=== PATIENT | male | born 1990 | race Hispanic/Latino ===

== ENCOUNTER 2017-04-18 19:45 | Emergency (ER) | payer SELFPAY ==
[~2017-04-18] VITALS: Ht 167.6 cm; Wt 91.0 kg
[~2017-04-18 19:45] MED LIST: ADVIL200 MG PO; AMOXICILLIN500 MG PO; ANTIBIOT EAR11 OT; ANTIVERT OR; CEPHALEXIN500 MG PO; DENIES CURRENT MEDS; FLEXERIL PO; HYDROCORTISONE1 % EX; KEFLEX500 M1 PO; NAPROSYN500 MG PO; NO; NO HOME MEDS; PRILOSEC OTC20 MG OR; ROBITUSSIN AC10 ML PO; ULTRAM50 M1 PO; ULTRAM50 MG OR
[2017-04-18] MEDS ORDERED: AMOXICILLIN875 MG PO (20:03)
[2017-04-18] MEDS ORDERED: LORTAB 10-325 M1 TAB PO (20:03)
[2017-04-18] MEDS ORDERED: FLOXIN OTIC0.3 % AD (20:03)
[2017-04-18 21:00] VITALS: BP 144/74
== END 2017-04-18 21:00 | disposition home or self-care (01) | DRG 153 ==
LOC: ED 19:45
DX: H66.91 Otitis media, unspecified, right ear (principal); H92.01 Otalgia, right ear; R50.9 Fever, unspecified

== ENCOUNTER 2017-08-19 11:13 | Emergency (ER) | payer MEDICAID ==
[~2017-08-19] VITALS: Ht 167.6 cm; Wt 100.0 kg
[~2017-08-19 11:13] MED LIST changes: +AMOXICILLIN875 MG PO; +FLOXIN OTIC0.3 % AD; +LORTAB 10-325 M1 TAB PO
[2017-08-19] MEDS ORDERED: MOTRIN400 MG PO (13:06)
[2017-08-19] MEDS ORDERED: CYCLOBENZAPR5 MG PO (13:06)
[2017-08-19 13:17] VITALS: BP 130/80
== END 2017-08-19 13:15 | disposition home or self-care (01) | DRG 552 ==
LOC: ED 11:13
DX: M54.5 Low back pain (principal); X50.0XXA Overexertion from strenuous movement or load, initial encounter; X50.3XXA Overexertion from repetitive movements, initial encounter; Y93.H2 Activity, gardening and landscaping; Y92.89 Other specified places as the place of occurrence of the external cause

== ENCOUNTER 2017-08-26 18:51 | Emergency (ER) | payer MEDICAID ==
[~2017-08-26] VITALS: Ht 167.6 cm; Wt 100.0 kg
[~2017-08-26 18:51] MED LIST changes: +CYCLOBENZAPR5 MG PO; +MOTRIN400 MG PO
[2017-08-26 19:53] LABS: HEMATOCRIT 46.1 % (39.0-50.0); HEMOGLOBIN 16.2 g/dl (14.0-18.0); IMMATURE GRANULOCYTES 0.7 % (0.0-1.0); MEAN CELL VOLUME 83.7 fL CALC (80.0-100.0); MEAN CORPUSCULAR HGB 29.4 pG CALC (26.0-32.0); MEAN CORPUSCULAR HGB CONC 35.1 g/L CALC (32.0-36.0); NEUT# 11.77 thou/uL (1.82-7.42); RED BLOOD COUNT 5.51 mill/uL (4.70-6.10); RED CELL DISTRI WIDTH 11.9 % (11.5-15.5)
[2017-08-26 20:06] LABS: INFLUENZA A NONE DETECTED (NONE DETECT); INFLUENZA B NONE DETECTED (NONE DETECT)
[2017-08-26 20:09] LABS: ALBUMIN 5.3 g/dL (3.2-5.0); ALKALINE PHOSPHATASE 112 u/l (38-126); ANION GAP 21 (6-22 (CALC)); BILIRUBIN, TOTAL 0.7 mg/dL (0.0-1.4); BUN 14 mg/dL (9-20); BUN/CREATININE RATIO 15 (12-20 (CALC)); CARBON DIOXIDE 23 mmol/l (22-30); CHLORIDE 101 mmol/l (95-108); CREATININE 0.9 mg/dL (0.7-1.3); GFR > 60 ML/MIN (>=60 (CALC)); GFR FOR AFR.AMER. > 60 ML/MIN (>=60 (CALC)); SGOT/AST 52 u/l (17-59); SGPT/ALT 90 u/l (21-72); SODIUM 141 mmol/l (137-146); TOTAL PROTEIN 8.7 g/dL (6.3-8.2)
[2017-08-26 20:38] LABS: URINE BILIRUBIN - DIPSTICK NEGATIVE (NEGATIVE); URINE BLOOD DIPSTICK TRACE-INTACT (NEGATIVE); URINE COLOR YELLOW; URINE GLUCOSE - DIPSTICK NEGATIVE (NEGATIVE); URINE KETONE NEGATIVE (NEGATIVE); URINE LEUK ESTERASE NEGATIVE (NEGATIVE); URINE NITRITE - DIPSTICK NEGATIVE (Negative); URINE PROTEIN - DIPSTICK NEGATIVE (NEG-TRACE); URINE SPECIFIC GRAVITY 1.025; URINE UROBILINOGEN - DIPSTICK 0.2 E.U./dL (0.2)
[2017-08-26 20:42] LABS: URINE CLARITY CLEAR
[2017-08-26] MEDS ORDERED: AMOXICILLIN500 MG PO (22:23)
[2017-08-26 22:40] VITALS: BP 140/71
== END 2017-08-26 22:33 | disposition home or self-care (01) | DRG 203 ==
LOC: ED 18:51
PROVIDERS: Emergency Medicine
DX: J40 Bronchitis, not specified as acute or chronic (principal); F17.210 Nicotine dependence, cigarettes, uncomplicated; R06.02 Shortness of breath; R50.9 Fever, unspecified

== ENCOUNTER 2017-11-10 10:03 | Emergency (ER) | payer SELFPAY ==
[~2017-11-10] VITALS: Ht 167.6 cm; Wt 100.0 kg
[2017-11-10 10:44] LABS: HEMATOCRIT 46.6 % (39.0-50.0); HEMOGLOBIN 16.4 g/dl (14.0-18.0); IMMATURE GRANULOCYTES 0.8 % (0.0-1.0); MEAN CELL VOLUME 83.8 fL CALC (80.0-100.0); MEAN CORPUSCULAR HGB 29.5 pG CALC (26.0-32.0); MEAN CORPUSCULAR HGB CONC 35.2 g/L CALC (32.0-36.0); NEUT# 3.22 thou/uL (1.82-7.42); RED BLOOD COUNT 5.56 mill/uL (4.70-6.10); RED CELL DISTRI WIDTH 12.3 % (11.5-15.5)
[2017-11-10 10:53] LABS: ALBUMIN 4.6 g/dL (3.2-5.0); ALKALINE PHOSPHATASE 99 u/l (38-126); AMYLASE 57 u/l (30-110); ANION GAP 18 (6-22 (CALC)); BILIRUBIN, TOTAL 0.8 mg/dL (0.0-1.4); BUN 10 mg/dL (9-20); BUN/CREATININE RATIO 13 (12-20 (CALC)); CARBON DIOXIDE 25 mmol/l (22-30); CHLORIDE 102 mmol/l (95-108); CREATININE 0.8 mg/dL (0.7-1.3); GFR > 60 ML/MIN (>=60 (CALC)); GFR FOR AFR.AMER. > 60 ML/MIN (>=60 (CALC)); LIPASE 117 u/l (23-300); POTASSIUM 4.4 mmol/l (3.5-5.1); SGOT/AST 68 u/l (17-59); SGPT/ALT 114 u/l (21-72); SODIUM 141 mmol/l (137-146); TOTAL PROTEIN 8.1 g/dL (6.3-8.2)
[2017-11-10] MEDS ORDERED: TORADOL PO (11:44)
[2017-11-10 11:59] VITALS: BP 143/70
== END 2017-11-10 12:08 | disposition home or self-care (01) | DRG 313 ==
LOC: ED 10:03
PROVIDERS: Family Medicine
DX: R07.89 Other chest pain (principal); G89.29 Other chronic pain; M54.9 Dorsalgia, unspecified

== ENCOUNTER 2017-12-17 09:43 | Emergency (ER) | payer OTHER ==
[~2017-12-17] VITALS: Ht 167.6 cm; Wt 104.0 kg
[~2017-12-17 09:43] MED LIST changes: +TORADOL PO
[2017-12-17] MEDS ORDERED: AFRIN 12 HOUR0.05 % (09:59)
[2017-12-17] MEDS ORDERED: PENICILLN VK500 MG PO (09:59)
[2017-12-17 10:10] VITALS: BP 153/89
== END 2017-12-17 10:10 | disposition home or self-care (01) | DRG 153 ==
LOC: ED 09:43
DX: J02.9 Acute pharyngitis, unspecified (principal); G89.29 Other chronic pain; M54.9 Dorsalgia, unspecified; R09.81 Nasal congestion; R05 Cough; R50.9 Fever, unspecified

== ENCOUNTER 2018-03-07 18:46 | Emergency (ER) | payer SELFPAY ==
[~2018-03-07] VITALS: Ht 152.4 cm; Wt 102.3 kg
[~2018-03-07 18:46] MED LIST changes: +AFRIN 12 HOUR0.05 %; +PENICILLN VK500 MG PO
[2018-03-07 19:56] VITALS: BP 135/88
== END 2018-03-07 20:05 | disposition home or self-care (01) | DRG 563 ==
LOC: ED 18:46
DX: S86.912A Strain of unspecified muscle(s) and tendon(s) at lower leg level, left leg, initial encounter (principal); G89.29 Other chronic pain; M54.9 Dorsalgia, unspecified; W18.39XA Other fall on same level, initial encounter; Y93.89 Activity, other specified; Y92.89 Other specified places as the place of occurrence of the external cause; Y99.0 Civilian activity done for income or pay

== ENCOUNTER 2018-06-03 09:17 | Emergency (ER) | payer SELFPAY ==
[~2018-06-03] VITALS: Ht 167.6 cm; Wt 104.5 kg
[2018-06-03] MEDS ORDERED: IBU-DROPS50 MG/1.25 (09:34)
[2018-06-03] MEDS ORDERED: TORADOL PO (10:32)
[2018-06-03] MEDS ORDERED: FLEXERIL PO (10:32)
[2018-06-03] MEDS ORDERED: MEDDOSEPAK PO (10:32)
[2018-06-03 10:55] VITALS: BP 148/84
== END 2018-06-03 10:55 | disposition home or self-care (01) | DRG 563 ==
LOC: ED 09:17
DX: S46.911A Strain of unspecified muscle, fascia and tendon at shoulder and upper arm level, right arm, initial encounter (principal); X50.1XXA Overexertion from prolonged static or awkward postures, initial encounter; Y93.H2 Activity, gardening and landscaping; Y92.89 Other specified places as the place of occurrence of the external cause; Y99.0 Civilian activity done for income or pay

== ENCOUNTER 2018-10-05 10:00 | Outpatient (RCR) | payer OTHER ==
[~2018-10-05 10:00] MED LIST changes: +IBU-DROPS50 MG/1.25; +MEDDOSEPAK PO
== END 2018-10-05 11:00 | disposition home or self-care (01) | DRG 556 ==
LOC: PT 10:00
PROVIDERS: ATTEND Orthopaedic Surgery
DX: M25.811 Other specified joint disorders, right shoulder (principal)

== ENCOUNTER 2018-12-14 11:32 | Emergency (ER) | payer SELFPAY ==
[~2018-12-14] VITALS: Ht 167.6 cm; Wt 100.0 kg
[2018-12-14 12:14] LABS: HEMATOCRIT 47.5 % (39.0-50.0); HEMOGLOBIN 16.3 g/dl (14.0-18.0); IMMATURE GRANULOCYTES 0.4 % (0.0-5.0); MEAN CELL VOLUME 84.5 fL CALC (80.0-100.0); MEAN CORPUSCULAR HGB CONC 34.3 g/L CALC (32.0-36.0); NEUT# 3.43 thou/uL (1.82-7.42); RED BLOOD COUNT 5.62 mill/uL (4.70-6.10); RED CELL DISTRI WIDTH 12.1 % (11.5-15.5)
[2018-12-14 12:26] LABS: ALBUMIN 4.8 g/dL (3.2-5.0); ALKALINE PHOSPHATASE 104 u/l (38-126); ANION GAP 15 (6-22 (CALC)); BILIRUBIN, TOTAL 0.8 mg/dL (0.0-1.4); BUN 10 mg/dL (9-20); BUN/CREATININE RATIO 13 (12-20 (CALC)); CARBON DIOXIDE 26 mmol/l (22-30); CHLORIDE 103 mmol/l (95-108); CREATININE 0.8 mg/dL (0.7-1.3); GFR > 60 ML/MIN (>=60 (CALC)); GFR FOR AFR.AMER. > 60 ML/MIN (>=60 (CALC)); SGOT/AST 96 u/l (17-59); SODIUM 140 mmol/l (137-146); TOTAL PROTEIN 7.9 g/dL (6.3-8.2)
[2018-12-14 12:38] LABS: MYOGLOBIN 61 ng/mL (0 - 121)
[2018-12-14] MEDS ORDERED: TORADOL PO (13:06)
[2018-12-14] MEDS ORDERED: TUSSIONEX1 ML PO (13:06)
[2018-12-14 13:25] VITALS: BP 140/70
== END 2018-12-14 13:25 | disposition home or self-care (01) | DRG 203 ==
LOC: ED 11:32
PROVIDERS: Family Medicine
DX: J20.8 Acute bronchitis due to other specified organisms (principal); F17.210 Nicotine dependence, cigarettes, uncomplicated; R07.89 Other chest pain; R06.02 Shortness of breath; R05 Cough

== ENCOUNTER 2019-06-28 17:48 | Emergency (ER) | payer OTHER ==
[~2019-06-28] VITALS: Ht 167.6 cm; Wt 109.0 kg
[~2019-06-28 17:48] MED LIST changes: +TUSSIONEX1 ML PO
[2019-06-28] MEDS ORDERED: ROBITUSSIN AC10 ML PO (19:59)
[2019-06-28] MEDS ORDERED: CEPHALEXIN500 MG PO (19:59)
[2019-06-28 20:08] VITALS: BP 122/70
== END 2019-06-28 20:10 | disposition home or self-care (01) ==
LOC: ED 17:48
DX: J06.9 Acute upper respiratory infection, unspecified (principal)

== ENCOUNTER 2021-07-11 08:02 | Emergency (ER) | payer OTHER ==
[~2021-07-11] VITALS: Ht 167.6 cm; Wt 136.0 kg
[2021-07-11 08:58] LABS: HEMATOCRIT 47.9 % (39.0-50.0); HEMOGLOBIN 16.6 g/dl (14.0-18.0); IMMATURE GRANULOCYTES 0.5 % (0.0-5.0); MEAN CELL VOLUME 84.3 fL CALC (80.0-100.0); MEAN CORPUSCULAR HGB 29.2 pG CALC (26.0-32.0); MEAN CORPUSCULAR HGB CONC 34.7 g/dL CAL (32.0-36.0); NEUT# 4.92 thou/uL (1.82-7.42); RED BLOOD COUNT 5.68 mill/uL (4.70-6.10); RED CELL DISTRI WIDTH 12.1 % (11.5-15.5)
[2021-07-11 09:02] LABS: URINE BILIRUBIN - DIPSTICK NEGATIVE (NEGATIVE); URINE BLOOD DIPSTICK NEGATIVE (NEGATIVE); URINE COLOR YELLOW; URINE GLUCOSE - DIPSTICK NEGATIVE (NEGATIVE); URINE KETONE NEGATIVE (NEGATIVE); URINE LEUK ESTERASE NEGATIVE (NEGATIVE); URINE PROTEIN - DIPSTICK NEGATIVE (NEG-TRACE); URINE UROBILINOGEN - DIPSTICK 0.2 E.U./dL (0.2)
[2021-07-11 09:03] LABS: ALBUMIN 4.4 g/dL (3.2-5.0); ALKALINE PHOSPHATASE 115 u/l (38-126); AMYLASE 66 u/l (30-110); ANION GAP 12 (6-22 (CALC)); BILIRUBIN, TOTAL 0.7 mg/dL (0.0-1.4); BUN 8 mg/dL (9-20); BUN/CREATININE RATIO 12 (12-20 (CALC)); CARBON DIOXIDE 30 mmol/l (22-30); CHLORIDE 100 mmol/l (95-108); CREATININE 0.7 mg/dL (0.7-1.3); GFR > 60 ML/MIN (>=60 (CALC)); GFR FOR AFR.AMER. > 60 ML/MIN (>=60 (CALC)); LIPASE 91 u/l (23-300); POTASSIUM 3.9 mmol/l (3.5-5.1); SGOT/AST 57 u/l (17-59); SODIUM 138 mmol/l (137-146)
[2021-07-11 09:08] LABS: URINE NITRITE - DIPSTICK NEGATIVE (Negative)
[2021-07-11 09:15] LABS: MYOGLOBIN 69 ng/mL (0 - 121)
[2021-07-11 09:50] VITALS: BP 132/73
== END 2021-07-11 10:10 | disposition left against medical advice (07) ==
LOC: ED 08:02
PROVIDERS: Emergency Medicine
DX: R07.9 Chest pain, unspecified (principal); I10 Essential (primary) hypertension; F17.290 Nicotine dependence, other tobacco product, uncomplicated; Z91.19 Patient's noncompliance with other medical treatment and regimen

== ENCOUNTER 2021-08-23 22:49 | Emergency (ER) | payer OTHER ==
[~2021-08-23] VITALS: Ht 165.1 cm; Wt 118.0 kg
[2021-08-24] MEDS ORDERED: CLEOCIN300 MG PO (00:23)
[2021-08-24] MEDS ORDERED: CLARITIN10 M2 PO (00:23)
[2021-08-24 00:34] VITALS: BP 160/90
== END 2021-08-24 00:48 | disposition home or self-care (01) ==
LOC: ED 22:49
DX: J02.9 Acute pharyngitis, unspecified (principal); F17.200 Nicotine dependence, unspecified, uncomplicated; Z20.822 Contact with and (suspected) exposure to COVID-19

== ENCOUNTER 2021-10-29 03:32 | Emergency (ER) | payer OTHER ==
[~2021-10-29] VITALS: Ht 165.1 cm; Wt 137.6 kg
[2021-10-29] VITALS (10 sets, daily range): BP systolic 138–168; BP diastolic 81–112
[~2021-10-29 03:32] MED LIST changes: +CLARITIN10 M2 PO; +CLEOCIN300 MG PO
[2021-10-29 04:13] LABS: URINE BILIRUBIN - DIPSTICK NEGATIVE (NEGATIVE); URINE BLOOD DIPSTICK NEGATIVE (NEGATIVE); URINE COLOR YELLOW; URINE GLUCOSE - DIPSTICK NEGATIVE (NEGATIVE); URINE KETONE NEGATIVE (NEGATIVE); URINE LEUK ESTERASE NEGATIVE (NEGATIVE); URINE PH 6.5 (4.5-8.0); URINE PROTEIN - DIPSTICK NEGATIVE (NEG-TRACE); URINE UROBILINOGEN - DIPSTICK 0.2 E.U./dL (0.2)
[2021-10-29 04:14] LABS: HEMOGLOBIN 16.6 g/dl (14.0-18.0); IMMATURE GRANULOCYTES 0.9 % (0.0-5.0); MEAN CELL VOLUME 85.9 fL CALC (80.0-100.0); MEAN CORPUSCULAR HGB 28.5 pG CALC (26.0-32.0); MEAN CORPUSCULAR HGB CONC 33.2 g/dL CAL (32.0-36.0); NEUT# 5.24 thou/uL (1.82-7.42); RED BLOOD COUNT 5.82 mill/uL (4.70-6.10); RED CELL DISTRI WIDTH 12.5 % (11.5-15.5)
[2021-10-29 04:17] LABS: GFR > 60 ML/MIN (>=60 (CALC)); GFR FOR AFR.AMER. > 60 ML/MIN (>=60 (CALC))
[2021-10-29 04:19] LABS: URINE NITRITE - DIPSTICK NEGATIVE (Negative)
[2021-10-29 04:27] LABS: ALBUMIN 4.6 g/dL (3.2-5.0); ALKALINE PHOSPHATASE 97 u/l (38-126); AMYLASE 78 u/l (30-110); ANION GAP 12 (6-22 (CALC)); BUN 8 mg/dL (9-20); BUN/CREATININE RATIO 9 (12-20 (CALC)); CARBON DIOXIDE 33 mmol/l (22-30); CHLORIDE 101 mmol/l (95-108); CREATININE 0.8 mg/dL (0.7-1.3); ETHYL ALCOHOL 0 mg/dl (0-30); GFR > 60 ML/MIN (>=60 (CALC)); GFR FOR AFR.AMER. > 60 ML/MIN (>=60 (CALC)); LIPASE 110 u/l (23-300); POTASSIUM 4.2 mmol/l (3.5-5.1); SGOT/AST 52 u/l (17-59); SODIUM 142 mmol/l (137-146); TOTAL PROTEIN 8.3 g/dL (6.3-8.2)
[2021-10-29 04:30] LABS: BILIRUBIN, TOTAL 0.3 mg/dL (0.0-1.4)
[2021-10-29] MEDS ORDERED: ZOFRAN4 MG/TAB PO (05:58)
== END 2021-10-29 06:10 | disposition home or self-care (01) ==
LOC: ED 03:32
DX: R10.84 Generalized abdominal pain (principal); I10 Essential (primary) hypertension; M54.50 Low back pain, unspecified; G89.29 Other chronic pain; F17.290 Nicotine dependence, other tobacco product, uncomplicated
CPT/HCPCS: Q9967

== ENCOUNTER 2022-04-02 00:49 | Emergency (ER) | payer OTHER ==
[~2022-04-02] VITALS: Ht 165.1 cm; Wt 141.0 kg
[~2022-04-02 00:49] MED LIST changes: +ZOFRAN4 MG/TAB PO
[2022-04-02 01:45] LABS: HEMATOCRIT 46.1 % (39.0-50.0); IMMATURE GRANULOCYTES 1.1 % (0.0-5.0); MEAN CELL VOLUME 82.3 fL CALC (80.0-100.0); MEAN CORPUSCULAR HGB 28.6 pG CALC (26.0-32.0); MEAN CORPUSCULAR HGB CONC 34.7 g/dL CAL (32.0-36.0); NEUT# 6.09 thou/uL (1.82-7.42); RED BLOOD COUNT 5.6 mill/uL (4.70-6.10); RED CELL DISTRI WIDTH 12.3 % (11.5-15.5)
[2022-04-02 01:52] LABS: ALBUMIN 4.7 g/dL (3.2-5.0); ALKALINE PHOSPHATASE 101 u/l (38-126); AMYLASE 83 u/l (30-110); ANION GAP 16 (6-22 (CALC)); BILIRUBIN, TOTAL 0.3 mg/dL (0.0-1.4); BUN 12 mg/dL (9-20); BUN/CREATININE RATIO 16 (12-20 (CALC)); CHLORIDE 101 mmol/l (95-108); CREATININE 0.7 mg/dL (0.7-1.3); GFR FOR AFR.AMER. > 60 ML/MIN (>=60 (CALC)); GFR OTHER RACES > 60 ML/MIN (>=60 (CALC)); LIPASE 154 u/l (23-300); POTASSIUM 3.4 mmol/l (3.5-5.1); SGOT/AST 53 u/l (17-59); SODIUM 139 mmol/l (137-146)
[2022-04-02 01:55] LABS: CARBON DIOXIDE 25 mmol/l (22-30)
[2022-04-02] MEDS ORDERED: ANUCORT-HC25 MG RE (02:08)
[2022-04-02 02:17] VITALS: BP 135/98
== END 2022-04-02 02:27 | disposition home or self-care (01) ==
LOC: ED 00:49
PROVIDERS: Emergency Medicine
DX: K60.2 Anal fissure, unspecified (principal); K64.9 Unspecified hemorrhoids; K59.00 Constipation, unspecified; F17.200 Nicotine dependence, unspecified, uncomplicated

== ENCOUNTER 2023-03-01 14:00 | Emergency (ER) | payer OTHER ==
[~2023-03-01] VITALS: Ht 165.1 cm; Wt 138.4 kg
[~2023-03-01 14:00] MED LIST changes: +ANUCORT-HC25 MG RE
[2023-03-01 15:41] LABS: BASO% 0.5 % (0-3); HEMATOCRIT 48.2 % (39.0-50.0); HEMOGLOBIN 16.3 g/dl (14.0-18.0); IMMATURE GRANULOCYTES 0.4 % (0.0-5.0); LYMPH% 26.2 % (15-41); MEAN CELL VOLUME 84.9 fL CALC (80.0-100.0); MEAN CORPUSCULAR HGB 28.7 pG CALC (26.0-32.0); MEAN CORPUSCULAR HGB CONC 33.8 g/dL CAL (32.0-36.0); MONO% 6.6 % (2-13); NEUT# 6.22 thou/uL (1.82-7.42); NEUT% 62.3 % (42-76); RED BLOOD COUNT 5.68 mill/uL (4.70-6.10); RED CELL DISTRI WIDTH 12.3 % (11.5-15.5)
[2023-03-01 15:57] LABS: ALBUMIN 4.5 g/dL (3.2-5.0); ALKALINE PHOSPHATASE 93 u/l (38-126); ANION GAP 12 (6-22 (CALC)); BILIRUBIN, TOTAL 0.7 mg/dL (0.2-1.3); BUN 11 mg/dL (9-20); BUN/CREATININE RATIO 14 (12-20 (CALC)); CARBON DIOXIDE 28 mmol/l (22-30); CHLORIDE 102 mmol/l (95-108); CREATININE 0.8 mg/dL (0.7-1.3); GFR FOR AFR.AMER. > 60 ML/MIN (>=60 (CALC)); GFR OTHER RACES > 60 ML/MIN (>=60 (CALC)); POTASSIUM 3.5 mmol/l (3.5-5.1); SGOT/AST 39 u/l (17-59); SODIUM 138 mmol/l (137-146); TOTAL PROTEIN 8.2 g/dL (6.3-8.2)
[2023-03-01 16:44] VITALS: BP 125/86
[2023-03-01] MEDS ORDERED: AMOX/K CLAV875 M1 PO (17:02)
== END 2023-03-01 17:09 | disposition home or self-care (01) ==
LOC: ED 14:00
PROVIDERS: Family Medicine
DX: H66.92 Otitis media, unspecified, left ear (principal); R23.8 Other skin changes; I10 Essential (primary) hypertension; Z20.822 Contact with and (suspected) exposure to COVID-19

== ENCOUNTER 2024-07-21 02:24 | Emergency (ER) | payer SELFPAY ==
[~2024-07-21] VITALS: Ht 154.9 cm; Wt 145.0 kg
[~2024-07-21 02:24] MED LIST changes: +AMOX/K CLAV875 M1 PO; +BACTRIM DS1 TAB PO; +LORTAB 1010 MG PO
[2024-07-21] MEDS ORDERED: SODIUM CHLORIDE 0.9% 1,000 ML IV STA (02:39)
[2024-07-21] MEDS ORDERED: KETOROLAC TROMETHAMINE 30 MG/ML SDV IV ONE (02:40)
[2024-07-21] MEDS ORDERED: ACETAMINOPHEN 500 MG TAB PO ONE (02:40)
[2024-07-21] MEDS ORDERED: traMADol HCL 50 MG/TAB PO ONE (02:40)
[2024-07-21 03:04] LABS: BASO% 0.5 % (0-3); EOS% 4.2 % (0-8); HEMATOCRIT 45.1 % (39.0-50.0); HEMOGLOBIN 15.4 g/dl (14.0-18.0); IMMATURE GRANULOCYTES 0.3 % (0.0-5.0); LYMPH% 35.2 % (15-41); MEAN CELL VOLUME 83.4 fL CALC (80.0-100.0); MEAN CORPUSCULAR HGB 28.5 pG CALC (26.0-32.0); MEAN CORPUSCULAR HGB CONC 34.1 g/dL CAL (32.0-36.0); MONO% 7.4 % (2-13); NEUT# 4.61 thou/uL (1.82-7.42); NEUT% 52.4 % (42-76); RED BLOOD COUNT 5.41 mill/uL (4.70-6.10); RED CELL DISTRI WIDTH 12.4 % (11.5-15.5)
[2024-07-21 03:09] LABS: URINE BILIRUBIN - DIPSTICK Negative (NEGATIVE); URINE BLOOD DIPSTICK Negative (NEGATIVE); URINE GLUCOSE - DIPSTICK Negative (NEGATIVE); URINE KETONE Negative (NEGATIVE); URINE LEUK ESTERASE Negative (NEGATIVE); URINE NITRITE - DIPSTICK Negative (Negative); URINE PROTEIN - DIPSTICK Negative (NEG-TRACE); URINE UROBILINOGEN - DIPSTICK 0.2 E.U./dL (0.2)
[2024-07-21 03:14] LABS: ALBUMIN 4.5 g/dL (3.2-5.0); BILIRUBIN, TOTAL 0.6 mg/dL (0.2-1.3); CREATININE 0.7 mg/dL (0.7-1.3); POTASSIUM 3.8 mmol/l (3.5-5.1); TOTAL PROTEIN 7.8 g/dL (6.3-8.2)
[2024-07-21 03:14] LABS: URINE COLOR Yellow
[2024-07-21] MEDS ORDERED: VOLTAREN - GENE75 MG PO (04:24)
[2024-07-21 04:45] VITALS: BP 145/100
== END 2024-07-21 04:45 | disposition home or self-care (01) | DRG 392 ==
LOC: ED 02:24
PROVIDERS: Family Medicine
DX: R10.11 Right upper quadrant pain (principal)